=== PATIENT | male | born 1960 | race Caucasian/White ===

== ENCOUNTER 2019-06-12 08:15 | Emergency (ER) | payer SELFPAY ==
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
[2019-06-12] MEDS ORDERED: Diph,Pert(Acell),Tet Vac 0.5 ML SYR IM ONE (08:39)
[2019-06-12] MEDS ORDERED: LIDOCAINE 1% W/EPI 1:200,000 MPF 30ML SQ ONE (09:04)
--- NOTE | 2019-06-12 09:19 | CT SCAN REPORT ---
EXAMINATION: CT Head without IV Contrast EXAM DATE: 06/12/2019 9:06 AM TECHNIQUE: Standard protocol CT images of the head were obtained without intravenous contrast. Mckeon l and sagittal reconstructed images were created. INDICATION: Head trauma COMPARISON: No relevant comparison studies HAND DOMINANCE: Unknown. ENCOUNTER: Not applicable FINDINGS: 1. No intracranial mass effect, shift of midline structures, intra-axial or extra-axial hemorrhage, o r other extra-axial fluid collections. 2. Brain volume and ventricular size are appropriate for patient's stated age. No ventricular outflow obstruction. 3. Tineo-white matter differentiation is preserved. No sulcal effacement. No suspicious areas of alter ed attenuation. 4. Midline structures and craniocervical junction are unremarkable. 5. No depressed or widely calvarial fractures. Small left forehead hematoma and laceration. Several punctate radiopaque foreign bodies are seen within the subcutaneous soft tissues. Additional punctate radiopaque foreign body is seen within the left premaxillary skin. 6. Patchy mild mucosal thickening of the paranasal sinuses without layering fluid or significant opac ification. Temporal bone structures are well aerated. Unremarkable appearance of the orbital compartm ents. IMPRESSION: Small left forehead soft tissue injury without underlying calvarial fracture or acute intracranial he morrhage. Punctate radiopaque foreign bodies are seen within the skin and subcutaneous soft tissues o f the left forehead. Dictated by: Jojo Davidson MD on 06/12/2019 9:11 AM. .
[2019-06-12] MEDS ORDERED: CEPHALEXIN 500 MG CAPSULE PO STA (10:03)
[2019-06-12] MEDS ORDERED: HYDROCODONE/APAP 5/325MG TABLET PO ONE (10:04)
== END 2019-06-12 10:31 | disposition home or self-care (01) ==
LOC: ER 08:15
DX: S01.81XA Laceration without foreign body of other part of head, initial encounter (principal); R51 Headache; V00-Y99 External causes of morbidity; Y92.410 Unspecified street and highway as the place of occurrence of the external cause
CPT/HCPCS: 12054; 70450; 90715; 96372; 99284